=== PATIENT | female | born 1940 | race Caucasian/White ===

== ENCOUNTER 2017-01-31 08:18 | Day surgery (SDC) | payer MEDICARE ==
[~2017-01-31] VITALS: Ht 157.5 cm; Wt 81.2 kg
[~2017-01-31 08:18] MED LIST: ALPRAZOLAM0.25 M1 PO; ALPRAZOLAM0.25 MG PO; AMLODIPINE5 MG PO; ASPIRIN EC81 MG PO; BACTRIM DS1 TAB PO; BENADRYL 50MG C50 MG OR; CRESTOR10 MG PO; CRESTOR20 MG PO; DULERA1 AER IN; EFFEXOR37.5 MG PO; HYDROCHLOROT12.5 M1 PO; HYDROCHLOROT12.5 MG PO; KEFLEX500 MG PO; MEDDOSEPAK PO; MONTELUKAST SOD10 MG PO; NEXIUM40 M1 PO; NEXIUM40 MG PO; OCEAN NASAL0.65 % NAB; OLOPATADINE NAB; OMEPRAZOLE20 M1 PO; PRAVACHOL40 MG PO; RAMIPRIL2.5 MG PO; RANITIDINE150 MG PO; RESTASIS0.05 % OP; RESTASIS0.05 % OU; VENLAFAXINE HCL75 M1 PO; ZANTAC
[2017-01-31 11:12] VITALS: BP 149/60
== END 2017-01-31 11:00 | disposition home or self-care (01) ==
LOC: ENDO 08:18
PROVIDERS: ATTEND Surgery
PROC: 0DJD8ZZ Inspection of Lower Intestinal Tract, Via Natural or Artificial Opening Endoscopic (ICD-10-PCS; principal; 2017-01-31)
DX: Z12.11 Encounter for screening for malignant neoplasm of colon (principal); K64.4 Residual hemorrhoidal skin tags; K57.30 Diverticulosis of large intestine without perforation or abscess without bleeding

== ENCOUNTER 2017-05-09 11:06 | Emergency (ER) | payer MEDICARE ==
[~2017-05-09] VITALS: Ht 157.5 cm; Wt 80.4 kg
[2017-05-09 12:08] LABS: INFLUENZA A POSITIVE (NONE DETECT); INFLUENZA B NONE DETECTED (NONE DETECT)
[2017-05-09] MEDS ORDERED: PREDNISONE50 MG PO (13:15)
[2017-05-09] MEDS ORDERED: ZPAK PO (13:15)
[2017-05-09 13:31] VITALS: BP 150/70
== END 2017-05-09 13:29 | disposition home or self-care (01) ==
LOC: ED 11:06
PROVIDERS: Family Medicine
DX: J10.1 Influenza due to other identified influenza virus with other respiratory manifestations (principal); R50.9 Fever, unspecified; J40 Bronchitis, not specified as acute or chronic; R42 Dizziness and giddiness; I10 Essential (primary) hypertension

== ENCOUNTER → 2017-12-19 | Outpatient (REF) | payer MEDICARE ==
[~2017-12-19] MED LIST changes: +PREDNISONE50 MG PO; +ZPAK PO
[2017-12-19 10:32] LABS: HEMATOCRIT 42.8 % (37.0-47.0); HEMOGLOBIN 13.8 g/dl (12.0-16.0); IMMATURE GRANULOCYTES 0.4 % (0.0-5.0); MEAN CELL VOLUME 91.3 fL CALC (80.0-100.0); MEAN CORPUSCULAR HGB 29.4 pG CALC (26.0-32.0); MEAN CORPUSCULAR HGB CONC 32.2 g/L CALC (32.0-36.0); NEUT# 5.17 thou/uL (2.00-7.15); RED BLOOD COUNT 4.69 mill/uL (4.20-5.60); RED CELL DISTRI WIDTH 15.2 % (11.5-15.5)
[2017-12-19 10:55] LABS: ALBUMIN 3.9 g/dL (3.2-5.0); ALKALINE PHOSPHATASE 64 u/l (38-126); ANION GAP 10 (6-22 (CALC)); BILIRUBIN, TOTAL 0.4 mg/dL (0.0-1.4); BUN 14 mg/dL (8-23); BUN/CREATININE RATIO 18 (12-20 (CALC)); CALCULATED LDLCHOLESTEROL 109 mg/dL (62-129 (CALC)); CARBON DIOXIDE 32 mmol/l (22-30); CHLORIDE 104 mmol/l (95-108); CHOLESTEROL HDL RATIO 3.4 (<4.4 (CALC)); CREATININE 0.7 mg/dL (0.5-1.0); GFR > 60 ML/MIN (>=60 (CALC)); GFR FOR AFR.AMER. > 60 ML/MIN (>=60 (CALC)); HDL CHOLESTEROL 59 mg/dL (>=40); SGOT/AST 24 u/l (9-36); SODIUM 142 mmol/l (137-146); TOTAL CHOLESTEROL 204 mg/dl (0-199); TOTAL PROTEIN 6.8 g/dL (6.3-8.2); TOTAL TRIGLYCERIDES 180 mg/dl (30-149); VLDL CHOLESTROL 36 mg/dl (0-48 (CALC))
[2017-12-19 11:23] LABS: TSH, 3RD GENERATION 3.13 uIU/mL (0.47 - 4.68)
== END | disposition home or self-care (01) ==
LOC: LAB 10:07
PROVIDERS: ATTEND Internal Medicine
DX: E78.49 Other hyperlipidemia (principal); I10 Essential (primary) hypertension; K21.9 Gastro-esophageal reflux disease without esophagitis

== ENCOUNTER 2019-08-26 09:28 | Day surgery (SDC) | payer MEDICARE ==
[~2019-08-26] VITALS: Ht 154.9 cm; Wt 77.0 kg
[~2019-08-26 09:28] MED LIST changes: +AZELASTINE0.1 %; +FLONASE AL50 MCG/ACT; +IPRATROPIU0.5 MG/3 M IN; +MAGNESIUM250 M1 PO; +MULTI VIT PO; +PROAIR HFA108 MCG/AC; +PROBIOTIC; +REFRESH TEARS0.5 %; +SPIRIVA RE1.25 MCG/A INHW/SPAC; +ZYRTEC10 MG PO
[2019-08-26 14:53] VITALS: BP 121/58
== END 2019-08-26 14:38 | disposition home or self-care (01) ==
LOC: ENDO 09:28 → ORM 11:00 → ENDO 11:00
PROVIDERS: ATTEND Surgery
PROC: 0DBL8ZX Excision of Transverse Colon, Via Natural or Artificial Opening Endoscopic, Diagnostic (ICD-10-PCS; principal; 2019-08-26)
PROC: 0DJ08ZZ Inspection of Upper Intestinal Tract, Via Natural or Artificial Opening Endoscopic (ICD-10-PCS; 2019-08-26)
DX: K57.31 Diverticulosis of large intestine without perforation or abscess with bleeding (principal); D12.3 Benign neoplasm of transverse colon; K64.8 Other hemorrhoids; I10 Essential (primary) hypertension; R59.0 Localized enlarged lymph nodes; Z80.0 Family history of malignant neoplasm of digestive organs; Z11.59 Encounter for screening for other viral diseases

== ENCOUNTER 2020-03-16 18:06 | Emergency (ER) | payer MEDICARE ==
[~2020-03-16] VITALS: Ht 154.9 cm; Wt 85.0 kg
[2020-03-16 18:42] LABS: IMMATURE GRANULOCYTES 2.6 % (0.0-5.0); MEAN CORPUSCULAR HGB CONC 31.2 g/dL CAL (32.0-36.0); PLATELET COUNT 290 thou/uL (130-400); RED BLOOD COUNT 3.27 mill/uL (4.20-5.60); RED CELL DISTRI WIDTH 15.8 % (11.5-15.5)
[2020-03-16 18:43] LABS: HEMATOCRIT 31.4 % (37.0-47.0); HEMOGLOBIN 9.8 g/dl (12.0-16.0); MANUAL DIFFERENTIAL YES
[2020-03-16 18:58] LABS: ALBUMIN 3.8 g/dL (3.2-5.0); ANION GAP 11 (6-22 (CALC)); BUN 23 mg/dL (8-23); BUN/CREATININE RATIO 22 (12-20 (CALC)); CARBON DIOXIDE 27 mmol/l (22-30); CHLORIDE 105 mmol/l (95-108); GFR 54 ML/MIN (>=60 (CALC)); GFR FOR AFR.AMER. > 60 ML/MIN (>=60 (CALC)); POTASSIUM 3.9 mmol/l (3.5-5.1); SGOT/AST 45 u/l (9-36); SODIUM 138 mmol/l (137-146); TOTAL PROTEIN 6.4 g/dL (6.3-8.2)
[2020-03-16 19:00] LABS: BAND 5 % (0-8)
[2020-03-16 19:02] LABS: ALKALINE PHOSPHATASE 167 u/l (38-126); BILIRUBIN, TOTAL 0.2 mg/dL (0.0-1.4)
[2020-03-16 22:15] LABS: URINE BILIRUBIN - DIPSTICK NEGATIVE (NEGATIVE); URINE BLOOD DIPSTICK TRACE-INTACT (NEGATIVE); URINE COLOR YELLOW; URINE GLUCOSE - DIPSTICK NEGATIVE (NEGATIVE); URINE KETONE NEGATIVE (NEGATIVE); URINE LEUK ESTERASE NEGATIVE (NEGATIVE); URINE NITRITE - DIPSTICK NEGATIVE (Negative); URINE PROTEIN - DIPSTICK NEGATIVE (NEG-TRACE); URINE SPECIFIC GRAVITY 1.015; URINE UROBILINOGEN - DIPSTICK 0.2 E.U./dL (0.2)
[2020-03-16 22:36] VITALS: BP 149/73
== END 2020-03-16 22:20 ==
LOC: ED 18:06
PROVIDERS: Emergency Medicine
PROC: 0T9B70Z Drainage of Bladder with Drainage Device, Via Natural or Artificial Opening (ICD-10-PCS; principal; 2020-03-16)
DX: S72.001A Fracture of unspecified part of neck of right femur, initial encounter for closed fracture (principal); I10 Essential (primary) hypertension; C85.90 Non-Hodgkin lymphoma, unspecified, unspecified site; W01.0XXA Fall on same level from slipping, tripping and stumbling without subsequent striking against object, initial encounter; Y92.000 Kitchen of unspecified non-institutional (private) residence as the place of occurrence of the external cause; Z20.822 Contact with and (suspected) exposure to COVID-19; Z79.899 Other long term (current) drug therapy

== ENCOUNTER 2021-10-13 12:31 | Emergency (ER) | payer MEDICARE ==
[~2021-10-13] VITALS: Ht 154.9 cm; Wt 76.3 kg
[~2021-10-13 12:31] MED LIST changes: +NAPROXEN500 MG PO
[2021-10-13] MEDS ORDERED: COZAAR50 MG PO (12:55)
[2021-10-13] MEDS ORDERED: CARTIA XT120 MG PO (12:56)
[2021-10-13] MEDS ORDERED: HYDROCO/APAP1 TA9 PO (16:50)
[2021-10-13 16:52] VITALS: BP 170/92
== END 2021-10-13 18:09 | disposition home or self-care (01) ==
LOC: ED 12:31
DX: S32.592A Other specified fracture of left pubis, initial encounter for closed fracture (principal); I10 Essential (primary) hypertension; J45.909 Unspecified asthma, uncomplicated; W10.9XXA Fall (on) (from) unspecified stairs and steps, initial encounter; Y92.009 Unspecified place in unspecified non-institutional (private) residence as the place of occurrence of the external cause